=== PATIENT | male | born 1995 | race Two or more races ===

== ENCOUNTER 2018-02-03 18:53 | Emergency (ER) | payer OTHER ==
[~2018-02-03] VITALS: Ht 170.2 cm; Wt 88.5 kg
[2018-02-03] MEDS ORDERED: TDAP DIPH,PERTUSS,TET VAC/PF 0.5 ML DISP.SYRIN IM ONE ×2 (19:30→19:40)
--- NOTE | 2018-02-03 19:46 | NUR ---
PT A/OX4, RESPONSIVE TO VERBAL AND TACTILE STIMULI. PT PRESENTS W/ A 2 CM LAC TO R AC FROM "PUNCHING THE MIRROR". LAC IS SUPERFICIAL, NO BLEEDING NOTED, NO ADIPOSE TISSUE VISIBLE. PT DENIES PAIN, C/P, SOB, N/V/D, DIZZINESS, HEADACHE. ER MD AT BEDSIDE FOR MSE.
--- NOTE | 2018-02-03 19:53 | NUR ---
Patient discharged to home in stable conditon. Written and verbal after care instructions given. Patient verbalizes understanding of instructions. PT D/C HOME W/ PRESCRIPTION. ALL BELONGINGS W/ PT. PT SELF-AMBULATED WITHOUT DIFFICULTY.
[2018-02-03 19:54] VITALS: BP 132/72
== END 2018-02-03 19:55 | disposition home or self-care (01) ==
LOC: ER 18:53
DX: S51.011A Laceration without foreign body of right elbow, initial encounter (principal); S50.01XA Contusion of right elbow, initial encounter; F17.200 Nicotine dependence, unspecified, uncomplicated; W25.XXXA Contact with sharp glass, initial encounter; Y93.89 Activity, other specified; Y92.89 Other specified places as the place of occurrence of the external cause; Y99.8 Other external cause status
CPT/HCPCS: 73080; 90715; A4663